=== PATIENT | female | born 1980 | race African-American/Black ===

== ENCOUNTER 2017-12-17 04:12 | Emergency (ER) | payer MEDICAID ==
[~2017-12-17] VITALS: Ht 170.2 cm; Wt 74.8 kg
[~2017-12-17 04:12] MED LIST: AUGMENTIN 875-1 EAC1 ORAL; NORCO 5-325 TA1 EACH ORAL
[2017-12-17] MEDS ORDERED: PEPCID40 MG PO (04:38)
--- NOTE | 2017-12-17 04:39 | Emergency Room Report ---
History of Present Illness General Chief Complaint: Abdominal Pain Source: Patient Present Illness HPI 37-year-old female with no sig pmhx p/w epigastric abd pain nausea and vomiting for 1-2 hours. Patient states pain started while she was sleeping, localized to epigastric area , non radiating, burning in nature, intermittent. No relieving or exacerbating factors. Denies having this pain in the past. States that she has been taking Aleve for her toothache, but denies taking it every single day Pt reports n/v, nbnb vomiting, 1 episodes of watery non bloody diarrhea yesterday. Denies black or bloody stools. Last bowel movement was today and it was normal, brown Denies fever, chills. No hx of abdominal surgeries. No hx of endoscopies/colonoscopies. No dysuria no hematuria Allergies: Coded Allergies: No Known Allergies (Unverified , 03/11/14) Patient History Past Medical History: see triage record Past Surgical History: none Pertinent Family History: none Last Menstrual Period: last week Now: No Reviewed Nursing Documentation: PMH: Agreed; PSxH: Agreed Nursing Documentation-PMH Past Medical History: No Stated History Review of Systems All Other Systems: negative except mentioned in HPI Physical Exam Vital Signs Date Time Temp Pulse Resp B/P (MAP) Pulse Ox O2 Delivery O2 Flow Rate FiO2 12/17/17 04:22 98.3 77 18 109/69 100 98.2 Sp02 EP Interpretation: reviewed, normal General Appearance: alert, GCS 15, non-toxic, moderate distress Head: normocephalic, atraumatic Eyes: bilateral eye normal inspection, bilateral eye PERRL, bilateral eye EOMI ENT: normal ENT inspection, normal pharynx, normal voice, moist mucus membranes Neck: normal inspection, full range of motion, supple Respiratory: normal inspection, lungs clear, normal breath sounds, no respiratory distress, no retraction, no wheezing, speaking full sentences, chest symmetrical Cardiovascular #1: normal inspection, regular rate, rhythm, no edema, normal capillary refill Cardiovascular #2: 2+ radial (R), 2+ radial (L) Gastrointestinal: other - Epigastric tenderness, no guarding or rebound, nontender lower abdomen Musculoskeletal: normal inspection, back normal, normal range of motion, non- tender Neurologic: normal inspection, alert, oriented x3, responsive, motor strength/ tone normal, sensory intact, normal gait, speech normal Psychiatric: normal inspection, judgement/insight normal, memory normal Skin: normal inspection, normal color, no rash, warm/dry, well hydrated, normal turgor Medical Decision Making Diagnostic Impression: Primary Impression: Abdominal pain Additional Impression: Abdominal pain of unknown etiology ER Course 37-year-old female with epigastric abdominal pain Differential Diagnosis: Gastritis, gastroenteritis, peptic ulcer disease, pancreatitis,, UTI/pyelo At this time abdomen is soft nontender with the exception of the epigastric region, not likely to have acute intra-abdominal surgical pathology, will hold CT for now. Plan: Basic labs, ua Pepcid, maalox, pain control, IVF ER course: Patient has remained stable during ED stay. no furhter episodes vomiting +uti Pain improved. Disposition: Patient is to be discharged to home. Prescriptions given are Pepcid Patient is instructed to follow up with their primary care doctor within 5 days. Strict return precautions discussed with patient such as fever, chills, worsening/severe abdominal pain, nausea, vomiting, black or bloody stools, which may indicate severe illness. Patient verbalizes understanding and agrees with plan. Please note that this Emergency Department Report was dictated using [employer] complaint clerk technology software, occasionally this can lead to erroneous entry secondary to interpretation by the dictation equipment Laboratory Tests Test 12/17/17 04:30 White Blood Count 17.1 K/UL (4.8-10.8) H Red Blood Count 4.03 M/UL (4.20-5.40) L Hemoglobin 13.4 G/DL (12.0-16.0) Hematocrit 39.2 % (37.0-47.0) Mean Corpuscular Volume 97 FL (80-99) Mean Corpuscular Hemoglobin 33.3 PG (27.0-31.0) H Mean Corpuscular Hemoglobin Concent 34.1 G/DL (32.0-36.0) Red Cell Distribution Width 12.0 % (11.6-14.8) Platelet Count 230 K/UL (150-450) Mean Platelet Volume 6.6 FL (6.5-10.1) Neutrophils (%) (Auto) % (45.0-75.0) Lymphocytes (%) (Auto) % (20.0-45.0) Monocytes (%) (Auto) % (1.0-10.0) Eosinophils (%) (Auto) % (0.0-3.0) Basophils (%) (Auto) % (0.0-2.0) Neutrophils % (Manual) Pending Lymphocytes % (Manual) Pending Platelet Estimate Pending Platelet Morphology Pending Urine Color Yellow Urine Appearance Cloudy Urine pH 5.0 (4.5-8.0) Urine Specific [place] 1.030 (1.005-1.035) Urine Protein 2+ (NEGATIVE) H Urine Glucose (UA) Negative (NEGATIVE) Urine Ketones Negative (NEGATIVE) Urine Occult Blood 2+ (NEGATIVE) H Urine Nitrite Negative (NEGATIVE) Urine Bilirubin Negative (NEGATIVE) Urine Urobilinogen 1 MG/DL (0.0-1.0) H Urine Leukocyte Esterase 2+ (NEGATIVE) H Urine RBC 5-10 /HPF (0 - 2) H Urine WBC 15-20 /HPF (0 - 2) H Urine Squamous Epithelial Cells Many /LPF (NONE/OCC) H Urine Bacteria Moderate /HPF (NONE) H Urine HCG, Qualitative Negative (NEGATIVE) Sodium Level 141 MMOL/L (136-145) Potassium Level 3.7 MMOL/L (3.5-5.1) Chloride Level 107 MMOL/L (98-107) Carbon Dioxide Level 23 MMOL/L (21-32) Anion Gap 11 mmol/L (5-15) Blood Urea Nitrogen 7 mg/dL (7-18) Creatinine 0.7 MG/DL (0.55-1.30) Estimate Glomerular Filtration Rate > 60 mL/min (>60) Glucose Level 123 MG/DL (74-106) H Calcium Level 8.5 MG/DL (8.5-10.1) Total Bilirubin 0.3 MG/DL (0.2-1.0) Aspartate Amino Transferase (AST) 116 U/L (15-37) H Alanine Aminotransferase (ALT) 72 U/L (12-78) Alkaline Phosphatase 87 U/L (46-116) Total Protein 7.0 G/DL (6.4-8.2) Albumin 3.3 G/DL (3.4-5.0) L Globulin 3.7 g/dL Albumin/Globulin Ratio 0.9 (1.0-2.7) L Lipase 88 U/L (73-393) Human Chorionic Gonadotropin, Quant < 1 mIU/mL (1-6) L Urine Opiates Screen Negative (NEGATIVE) Urine Barbiturates Screen Negative (NEGATIVE) Phencyclidine (PCP) Screen Negative (NEGATIVE) Urine Amphetamines Screen Negative (NEGATIVE) Urine Benzodiazepines Screen Negative (NEGATIVE) Urine Cocaine Screen Negative (NEGATIVE) Urine Marijuana (THC) Screen Positive (NEGATIVE) H Serum Alcohol < 3 mg/dL Last Vital Signs Date Time Temp Pulse Resp B/P (MAP) Pulse Ox O2 Delivery O2 Flow Rate FiO2 12/17/17 04:22 98.3 77 18 109/69 100 98.2 Disposition: HOME, SELF-CARE Condition: Improved Scripts Ondansetron Odt* (ZOFRAN ODT*) 4 Mg Tab.rapdis 4 MG ORAL Q6H PRN for Nausea & Vomiting, #15 TAB 0 Refills Prov: Minnie Meadows M.D. 12/17/17 Cephalexin* (KEFLEX*) 500 Mg Capsule 500 MG ORAL Q6H, #28 CAP 0 Refills Prov: Minnie Meadows M.D. 12/17/17 Famotidine (PEPCID) 40 Mg Tablet 40 MG PO DAILY, #7 TAB 0 Refills Prov: Minnie Meadows M.D. 12/17/17 Referrals: NOT CHOSEN SIMONE/,REFERRING (PCP) Minnie Meadows M.D. Dec 17, 2017 04:39
[2017-12-17] MEDS ORDERED: Mylanta II UD 30ml ORAL ONE (04:45)
[2017-12-17] MEDS ORDERED: Dicyclomine HCl 10mg/5ml oral soln ORAL ONE (04:45)
[2017-12-17] MEDS ORDERED: Lidocaine 2% Visc 15ml soln ORAL ONE (04:45)
[2017-12-17 05:01] LABS: ANION GAP 11 mmol/L (5-15); BLOOD UREA NITROGEN 7 mg/dL (7-18); CALCIUM 8.5 MG/DL (8.5-10.1); CARBON DIOXIDE 23 MMOL/L (21-32); CHLORIDE 107 MMOL/L (98-107); CREATININE 0.7 MG/DL (0.55-1.30); POTASSIUM 3.7 MMOL/L (3.5-5.1); SODIUM 141 MMOL/L (136-145)
[2017-12-17 05:05] LABS: COLOR,URINE YELLOW
[2017-12-17 05:06] LABS: APPEARANCE,URINE CLOUDY; BILIRUBIN, URINE NEGATIVE (NEGATIVE); GLUCOSE, URINE (UA) NEGATIVE (NEGATIVE); KETONES,URINE NEGATIVE (NEGATIVE); PROTEIN,URINE 2+ (NEGATIVE)
[2017-12-17 05:07] LABS: LEUKOCYTE ESTERASE ,URINE 2+ (NEGATIVE); NITRITE,URINE NEGATIVE (NEGATIVE); UROBILINOGEN,URINE 1 MG/DL (0.0-1.0)
[2017-12-17 05:08] LABS: ALANINE AMINOTRANSFERASE 72 U/L (12-78); ALBUMIN 3.3 G/DL (3.4-5.0); ALBUMIN/GLOBULIN RATIO 0.9 (1.0-2.7); ALKALINE PHOSPHATASE 87 U/L (46-116); ASPARTATE AMINO TRANSFERASE 116 U/L (15-37); BILIRUBIN,TOTAL 0.3 MG/DL (0.2-1.0)
[2017-12-17] MEDS ORDERED: ZOFRAN ODT4 MG ORAL (05:16)
[2017-12-17] MEDS ORDERED: KEFLEX500 MG ORAL (05:16)
[2017-12-17 05:18] LABS: HEMATOCRIT 39.2 % (37.0-47.0); HEMOGLOBIN 13.4 G/DL (12.0-16.0); MEAN CORPUSCULAR VOLUME 97 FL (80-99); PLATELET COUNT 230 K/UL (150-450); RED BLOOD COUNT 4.03 M/UL (4.20-5.40); WHITE BLOOD COUNT 17.1 K/UL (4.8-10.8)
[2017-12-17 06:40] VITALS: BP 108/74
[2017-12-17 06:54] VITALS: BP 108/74
== END 2017-12-17 06:55 | disposition home or self-care (01) ==
LOC: EMR 04:25
DX: R10.13 Epigastric pain (principal); R11.2 Nausea with vomiting, unspecified
CPT/HCPCS: 36415; 80053; 80307; 80329; 81003; 81025; 83690; 84702; 85007; 85025; 87086; 96374; 96375; 99284; J2405; S0028

== ENCOUNTER 2018-08-16 08:22 | Emergency (ER) | payer MEDICAID ==
[~2018-08-16] VITALS: Ht 170.2 cm; Wt 76.7 kg
[~2018-08-16 08:22] MED LIST changes: +KEFLEX500 MG ORAL; +PEPCID40 MG PO; +ZOFRAN ODT4 MG ORAL
[2018-08-16 08:41] VITALS: BP 142/81
[2018-08-16 09:43] VITALS: BP 142/81
--- NOTE | 2018-08-16 09:53 | Emergency Room Report ---
History of Present Illness General Chief Complaint: Pain Source: Patient Present Illness HPI This patient states that a few days ago she fell and she is not sure how it occurred. She states that her middle finger is swollen and tender with movement. She also has pain and swelling in her right knee. 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 She states she knows that the patella was dislocated but isn't sure if it is back in or not. She has been walking. She states it is more swollen and painful than it has been previously. She denies any other trauma or injury. She denies direct trauma to the knee. She has no other complaints. Allergies: Coded Allergies: No Known Allergies (Unverified , 08/16/18) Patient History Past Medical History: see triage record, other - Heart murmur Social History: Denies: smoking, alcohol use, drug use Last Menstrual Period: Jul 2018 Reviewed Nursing Documentation: PMH: Agreed; PSxH: Agreed Nursing Documentation-PMH Past Medical History: No History, Except For Review of Systems All Other Systems: negative except mentioned in HPI Physical Exam Vital Signs Date Time Temp Pulse Resp B/P (MAP) Pulse Ox O2 Delivery O2 Flow Rate FiO2 08/16/18 08:38 98.2 88 16 142/81 98 Room Air Sp02 EP Interpretation: reviewed, normal General Appearance: no apparent distress, alert, GCS 15, non-toxic Head: normocephalic, atraumatic Eyes: bilateral eye normal inspection, bilateral eye PERRL ENT: hearing grossly normal, normal pharynx, no angioedema, normal voice Neck: normal inspection Respiratory: no respiratory distress, no retraction, no accessory muscle use, speaking full sentences Rectal: deferred Musculoskeletal: back normal, gait/station normal, normal range of motion, swelling - R. knee. R. middle finger PIP joint swollen/ttp. No bony deformity noted. Neurologic: alert, oriented x3, responsive, motor strength/tone normal, sensory intact, speech normal Psychiatric: judgement/insight normal, memory normal, mood/affect normal, no suicidal/homicidal ideation Reflexes: 3+ bicep (R), 3+ bicep (L), 3+ tricep (R), 3+ tricep (L), 3+ knee (R) , 3+ knee (L) Skin: normal color, no rash, warm/dry, well hydrated Medical Decision Making Diagnostic Impression: Primary Impression: Finger sprain Additional Impression: Knee sprain ER Course This patient's physical exam is consistent with a rate knee sprain and a right middle finger PIP joint sprain. I had planned on obtaining an x-ray of the right middle finger. However, the patient was unable to wait for the imaging and eloped from the emergency department. I did not fully assess the right knee as the patient was fully dressed and then eloped before I was able to fully assess the knee. It was swollen and there did not appear to be a patellar dislocation based on visual inspection. I have a low suspicion for an emergency medical condition. The patient eloped without paperwork or full examination. Last Vital Signs Date Time Temp Pulse Resp B/P (MAP) Pulse Ox O2 Delivery O2 Flow Rate FiO2 08/16/18 08:41 98.2 88 16 142/81 98 Room Air Disposition: ELOPED Condition: Stable Referrals: NON PHYSICIAN (PCP) Kemi Knott DO Aug 16, 2018 09:53
[2018-08-16] MEDS ORDERED: NKM (12:13)
[2018-08-16] MEDS ORDERED: VOLTAREN100 G1 TP (13:56)
[2018-08-16] MEDS ORDERED: NAPROXEN500 M2 ORAL (13:56)
== END 2018-08-16 10:54 | disposition left against medical advice (07) ==
LOC: EMR 08:48
DX: S63.612A Unspecified sprain of right middle finger, initial encounter (principal); Z53.21 Procedure and treatment not carried out due to patient leaving prior to being seen by health care provider; X58.XXXA Exposure to other specified factors, initial encounter; Y93.9 Activity, unspecified; Y99.9 Unspecified external cause status
CPT/HCPCS: 99282

== ENCOUNTER 2018-08-16 11:49 | Emergency (ER) | payer MEDICAID ==
[~2018-08-16] VITALS: Ht 170.2 cm; Wt 76.7 kg
[2018-08-16 12:12] VITALS: BP 127/79
[2018-08-16] MEDS ORDERED: NKM (12:13)
--- NOTE | 2018-08-16 13:35 | Diagnostic Imaging Report ---
Indications: Pain status post fall last week Technique: Three views of the right knee Comparison: None Findings: No acute fractures. No dislocations. Joint spaces are preserved. No radiopaque foreign body. Normal mineralization. Impression: No acute process
--- NOTE | 2018-08-16 13:45 | Diagnostic Imaging Report ---
Indication: Reason For Exam: PAIN Technique: 3 views right hand Comparison: none Findings: No acute fractures. No dislocations. The joint spaces are preserved. Impression: Negative
--- NOTE | 2018-08-16 13:54 | Emergency Room Report ---
History of Present Illness General Chief Complaint: Pain Source: Patient Present Illness HPI 38-year-old female presents to the emergency department complaining of 5 out of 10 in severity pain to the right middle finger as well as the right knee with associated swelling and tenderness 1 week. Patient reports that she had a mechanical trip and fall accident which caused her to sustain injury. Patient reports that her symptoms have not improved since she states that her pain is somewhat management with Motrin. Patient states that it feels as though her right knee is going to give out on her. Patient reports previous injury to the right knee. Patient denies obvious deformity, skin color changes of the affected extremity, changes in temperature to the affected extremities. Denies numbness tingling or loss of sensation or gross motor movements of the extremities, incontinence of bowel or bladder. Denies CP, Palpitations, LOC, AMS , dizziness, Changes in Vision, weakness or a sudden severe headache. Allergies: Coded Allergies: No Known Allergies (Unverified , 08/16/18) Patient History Past Medical History: see triage record Past Surgical History: none Pertinent Family History: none Last Menstrual Period: 07/26/18 Now: No Reviewed Nursing Documentation: PMH: Agreed; PSxH: Agreed Nursing Documentation-PMH Hx Cardiac Problems: Yes - "minor heart murmur" Review of Systems All Other Systems: negative except mentioned in HPI Physical Exam Vital Signs Date Time Temp Pulse Resp B/P (MAP) Pulse Ox O2 Delivery O2 Flow Rate FiO2 08/16/18 12:09 99.3 83 16 127/79 99 Room Air Sp02 EP Interpretation: reviewed, normal General Appearance: no apparent distress, alert, GCS 15, non-toxic Head: normocephalic, atraumatic Eyes: bilateral eye normal inspection, bilateral eye PERRL ENT: hearing grossly normal, normal voice Neck: full range of motion Respiratory: lungs clear, normal breath sounds, speaking full sentences Cardiovascular #1: regular rate, rhythm, normal capillary refill Cardiovascular #2: 2+ dorsalis pedis (R) - posterior tibial Musculoskeletal: back normal, gait/station normal - compensated- favoring the right side. , normal range of motion, tender - TTP to the PIP joint of the RMF. swelling noted. TTP and Swelling noted to the right knee anteriorly, no increased laxity on exam, no clicking with ROM. pt. has compensated gait. NVI Neurologic: alert, oriented x3, responsive, motor strength/tone normal, sensory intact, speech normal, grossly normal Psychiatric: judgement/insight normal Skin: normal color, no rash, warm/dry, well hydrated Lymphatic: no adenopathy Medical Decision Making RAJINDER Attestation Dr. Knott is my supervising Physician whom patient management has been discussed with. Diagnostic Impression: Primary Impression: Sprain of finger, right Qualified Codes: S63.632A - Sprain of interphalangeal joint of right middle finger, initial encounter Additional Impressions: Right knee sprain Qualified Codes: S83.91XA - Sprain of unspecified site of right knee, initial encounter Soft tissue injury of right knee Qualified Codes: S89.91XA - Unspecified injury of right lower leg, initial encounter ER Course 38-year-old female presents to the emergency department complaining of 5 out of 10 in severity pain to the right middle finger as well as the right knee with associated swelling and tenderness 1 week. Patient reports that she had a mechanical trip and fall accident which caused her to sustain injury. Patient reports that her symptoms have not improved since she states that her pain is somewhat management with Motrin. Patient states that it feels as though her right knee is going to give out on her. Patient reports previous injury to the right knee. Patient denies obvious deformity, skin color changes of the affected extremity, changes in temperature to the affected extremities. Denies numbness tingling or loss of sensation or gross motor movements of the extremities, incontinence of bowel or bladder. Denies CP, Palpitations, LOC, AMS , dizziness, Changes in Vision, weakness or a sudden severe headache. Ddx considered but are not limited to Fracture, dislocation, contusion, Sprain/ Strain/Spasm, meniscal injury, knee soft tissue injury. Vital signs: are WNL, pt. is afebrile H&PE are most consistent with musculoskeletal injury will perform imaging to r/ o fractures/dislocations. ORDERS: - X-ray's Right knee 3 views - negative for fx, Dislocation, or significant soft tissue injury, per preliminary read in ED, and signed by RAJINDER Pereira , my supervising physician has reviewed, and agrees with my interpretation. ED INTERVENTIONS: -Knee Immobilizer splint applied to the [ ] Knee by hyperbaric technologist. Pt. remains neurovascularly intact. --Patient is provided with crutches and instructed on their use DISCHARGE: At this time pt. is stable for d/c to home. Will provide printed patient care instructions, and any necessary prescriptions. Care plan and follow up instructions have been discussed with the patient prior to discharge. Other X-Ray Diagnostic Results Other X-Ray Diagnostic Results : X-Ray ordered: Right knee # of Views/Limited Vs Complete: 3 View Indication: Pain EP Interpretation: Yes PA Xray: Interpretation reviewed, by supervising MD, and agrees with findings. Interpretation: no dislocation, no soft tissue swelling, no fractures Impression: No acute disease Electronically Signed by: Melody Pereira PA-C Last Vital Signs Date Time Temp Pulse Resp B/P (MAP) Pulse Ox O2 Delivery O2 Flow Rate FiO2 08/16/18 12:09 99.3 83 16 127/79 99 Room Air Disposition: HOME, SELF-CARE Condition: Stable Scripts Diclofenac Sodium (VOLTAREN) 100 Gm Gel..gram. 1 APPLIC TP TID, #100 GM Prov: Melody Pereira 08/16/18 Naproxen* (NAPROXEN*) 500 Mg Tablet 500 MG ORAL TWICE A DAY, #20 TAB Prov: Melody Pereira 08/16/18 Referrals: NON PHYSICIAN (PCP) Departure Forms: Return to Work Return to Work Date: Aug 20, 2018 Work Restrictions: No Heavy Lifting, No Prolonged Standing Other Restrictions: limited use of right leg, allow crutches/ light duty. Return to Full Activity: Aug 27, 2018 Patient Instructions: Combined Knee Ligament Sprain Additional Instructions: Take medications as directed. Follow up with an ANALYTICS SENIOR MANAGER in 3-5 days, even if your symptoms have resolved. If symptoms persist MRI may be required at the discretion of your PCP or Ortho Specialist. --Please review list of primary care clinics, if you do not already have a primary care provider who can give you an Orthopedic Referral. Return sooner to ED if new symptoms occur, or current symptoms become worse. - Please note that this Emergency Department Report was dictated using [employer] engineering manager technology software, occasionally this can lead to erroneous entry secondary to interpretation by the dictation equipment. Melody Pereira Aug 16, 2018 13:54
[2018-08-16] MEDS ORDERED: NAPROXEN500 M2 ORAL (13:56)
[2018-08-16] MEDS ORDERED: VOLTAREN100 G1 TP (13:56)
[2018-08-16 14:20] VITALS: BP 127/79
== END 2018-08-16 14:23 | disposition home or self-care (01) ==
LOC: EMR 12:36
DX: S63.632A Sprain of interphalangeal joint of right middle finger, initial encounter (principal); S83.91XA Sprain of unspecified site of right knee, initial encounter; S89.91XA Unspecified injury of right lower leg, initial encounter; W01.0XXA Fall on same level from slipping, tripping and stumbling without subsequent striking against object, initial encounter; Y93.9 Activity, unspecified; Y92.9 Unspecified place or not applicable; Y99.9 Unspecified external cause status
CPT/HCPCS: 29505; 99284